=== PATIENT | male | born 1985 | race Two or more races ===

== ENCOUNTER 2024-11-28 18:18 | Inpatient (IN) | payer MEDICAID ==
[~2024-11-28] VITALS: Ht 185.4 cm; Wt 73.0 kg
[2024-11-28] VITALS (10 sets, daily range): BP systolic 106–132; BP diastolic 62–83; PULSE 77–112; RESP 12–22; TEMP 98.4–98.6; O2SAT 98–100
[2024-11-28] MEDS ORDERED: FAMO20TA8 PO (18:45)
[2024-11-28] MEDS ORDERED: ONDA-243 PO (18:45)
[2024-11-28 19:50] LABS: BASOPHILS % (AUTO) 0.3 % (0-1); EOSINOPHILS # (AUTO) 0.1 X10'3 (0-0.9); EOSINOPHILS % (AUTO) 0.4 % (0-6); HEMATOCRIT 45.4 % (42.0-52.0); HEMOGLOBIN 15.6 g/dl (14.0-17.9); LYMPHOCYTES # (AUTO) 0.8 X10'3 (1.1-4.8); LYMPHOCYTES % (AUTO) 4.9 % (21-51); MEAN CORPUSCULAR HEMOGLOBIN 30.9 PG (27.0-31.0); MEAN CORPUSCULAR HGB CONC 34.4 g/dL (33.0-36.5); MEAN CORPUSCULAR VOLUME 89.7 FL (78-98); MEAN PLATELET VOLUME 9.3 FL (7.4-10.4); MONOCYTES # (AUTO) 0.6 X10'3 (0-0.9); MONOCYTES % (AUTO) 3.7 % (2-12); NEUTROPHILS # (AUTO) 15.2 X10'3 (1.8-7.7); NEUTROPHILS % (AUTO) 90.7 % (42-75); PLATELET COUNT 230 X10'3 (140-440); RED BLOOD COUNT 5.06 X10'6 (4.70-6.10); RED CELL DISTRIBUTION WIDTH 13.2 % (11.5-14.5); WHITE BLOOD COUNT 16.7 X10'3 (4.5-11.0)
[2024-11-28 20:03] LABS: ALANINE AMINOTRANSFERASE 20 U/L (12-78); ALBUMIN 4.5 G/DL (3.4-5.0); ALBUMIN/GLOBULIN RATIO 1.3 (1.1-1.5); ALKALINE PHOSPHATASE 49 IU/L (46-116); ANION GAP 13 (8-16); ASPARTATE AMINO TRANSFERASE 12 U/L (10-37); BILIRUBIN,TOTAL 1.6 MG/DL (0.1-1.0); BLOOD UREA NITROGEN 12 MG/DL (7-18); BUN/CREATININE RATIO 14.1 (10.0-20.0); CALCIUM 9.2 MG/DL (8.5-10.1); CHLORIDE 106 MMOL/L (99-107); CREATININE 0.85 MG/DL (0.60-1.10); GLUCOSE 92 MG/DL (70-104); POTASSIUM 3.1 MMOL/L (3.5-5.1); SODIUM 143 MMOL/L (135-145); TOTAL CARBON DIOXIDE 24.5 MMOL/L (24-32); TOTAL PROTEIN 7.9 G/DL (6.4-8.2); eCRCL 120 ML/MIN; eGFR > 90 ML/MIN
[2024-11-28] MEDS ORDERED: potassium Cl 40MEQ/1/2NS 520ml 520 ML IV PRN (20:05)
[2024-11-28] MEDS ORDERED: magnesium sulf-water 2g/50mL 50 ML IV PRN (20:05)
[2024-11-28] MEDS ORDERED: acetaminophen 325mg tablet PO PRN (20:05)
[2024-11-28] MEDS ORDERED: magnesium sulf-water 4G/100mL 100 ML IV PRN (20:05)
[2024-11-28] MEDS ORDERED: magnesium Cl slow-release 64mg tablet PO PRN (20:05)
[2024-11-28] MEDS ORDERED: potassium Cl 20 mEq SR tablet PO PRN (20:05)
[2024-11-28] MEDS ORDERED: morphine 2 MG/ML inj. syringe IV PRN ×2 (20:05→20:30)
[2024-11-28] MEDS ORDERED: magnesium hydroxide 30ml (MOM) UD suspension PO PRN (20:05)
[2024-11-28] MEDS ORDERED: mag hydrox/Alum hydrox/simeth 30ml oral suspension PO PRN (20:05)
[2024-11-28] MEDS ORDERED: ondansetron/PF 4mg/2ml inj IV PRN ×2 (20:05→20:30)
[2024-11-28] MEDS ORDERED: LIDOcaine 1% 30ml preserv. free vial ONE (20:14)
[2024-11-28] MEDS ORDERED: BUPIVAcaine 2.5mg/ml inj 50ml vial (contains preservative) ONE (20:15)
[2024-11-28] MEDS: normal saline 1000ml 1,000 ML IV SCH (20:24)
[2024-11-28] MEDS: CefTRIAXone/D5W-Rocephin 1gm 50 ML IV SCH (20:24)
[2024-11-28] MEDS: ringers solution, lacted 1,000 ML IV SCH (20:30)
[2024-11-28] MEDS ORDERED: meperidine/PF 25mg/ml syringe IV PRN ×3 (20:30)
[2024-11-28] MEDS ORDERED: proCHLORperazine 10 MG/2 ml inj IV PRN (20:30)
[2024-11-28] MEDS ORDERED: sevoflurane 250ml liquid IH ONE (20:38)
[2024-11-28] MEDS ORDERED: rocuronium 10mg/ml inj IV ONE (20:39)
[2024-11-28] MEDS ORDERED: midazolam 1 mg/ML 2ml injection ONE (20:39)
[2024-11-28] MEDS ORDERED: fentaNYL/PF 50MCG/1 ML 2ML syringe ONE (20:39)
[2024-11-28] MEDS ORDERED: propofol inj 20 ML IV ONE (20:40)
[2024-11-28] MEDS: BUPIVAcaine/PF 2.5 mg/ml (0.25%) 30ml vial IJ ONE (21:16)
[2024-11-28] MEDS ORDERED: sugammadex 200mg/2ml injection IV ONE (21:29)
[2024-11-28] MEDS ORDERED: HYDROcodone/acetaminophen 5mg/325mg tablet PO PRN (21:45)
[2024-11-28] MEDS ORDERED: naloxone 0.4 mg/ml inj IV PRN (21:45)
[2024-11-28] MEDS ORDERED: HYDROmorphone/PF 0.2 MG/ML SYRINGE IV PRN (21:50)
[2024-11-28] MEDS: morphine 4 MG/ML inj SYRINge IV PRN (21:58)
[2024-11-28] MEDS: HYDROmorphone/PF 0.2 MG/ML SYRINGE IV PRN (22:09)
[2024-11-28] MEDS: metroNIDAZOLE-Flagyl 500mg/NS 100 ML IV SCH (22:37)
[2024-11-29 00:12] VITALS: BP 114/64; PULSE 75; RESP 15; TEMP 98.6; O2SAT 100
[2024-11-29] MEDS: potassium Cl 20 mEq SR tablet PO PRN (00:19)
[2024-11-29 01:12] VITALS: BP 116/62; PULSE 69; RESP 16; TEMP 98.4; O2SAT 98
[2024-11-29 02:12] VITALS: BP 111/64; PULSE 66; RESP 16; TEMP 98.6; O2SAT 100
[2024-11-29] MEDS: morphine 2 MG/ML inj. syringe IV PRN (03:46)
[2024-11-29 04:37] LABS: URINE AMPHETAMINE SCREEN NEGATIVE (Neg); URINE BARBITUATE SCREEN NEGATIVE (Neg); URINE BENZODIAZEPINES SCREEN POSITIVE (Neg); URINE CANNABINOID SCREEN POSITIVE (Neg); URINE COCAINE SCREEN NEGATIVE (Neg); URINE METHADONE SCREEN NEGATIVE (Neg); URINE OPIATE SCREEN POSITIVE (Neg); URINE PHENCYCLIDINE SCREEN NEGATIVE (Neg)
[2024-11-29 05:33] LABS: BASOPHILS % (AUTO) 0.2 % (0-1); EOSINOPHILS % (AUTO) 0.1 % (0-6); HEMATOCRIT 44.5 % (42.0-52.0); LYMPHOCYTES % (AUTO) 7.4 % (21-51); MEAN CORPUSCULAR HEMOGLOBIN 30.9 PG (27.0-31.0); MEAN CORPUSCULAR HGB CONC 33.8 g/dL (33.0-36.5); MEAN CORPUSCULAR VOLUME 91.5 FL (78-98); MEAN PLATELET VOLUME 9.8 FL (7.4-10.4); MONOCYTES % (AUTO) 7.3 % (2-12); NEUTROPHILS # (AUTO) 11.2 X10'3 (1.8-7.7); PLATELET COUNT 208 X10'3 (140-440); RED BLOOD COUNT 4.86 X10'6 (4.70-6.10); RED CELL DISTRIBUTION WIDTH 13.5 % (11.5-14.5); WHITE BLOOD COUNT 13.2 X10'3 (4.5-11.0)
[2024-11-29 05:47] LABS: HEMOGLOBIN A1C 5.1 % (4.5-6.2)
[2024-11-29 06:00] VITALS: BP 107/64; PULSE 68; RESP 16; TEMP 98.3; O2SAT 100
[2024-11-29 06:07] LABS: ALANINE AMINOTRANSFERASE 17 U/L (12-78); ALBUMIN 3.9 G/DL (3.4-5.0); ALBUMIN/GLOBULIN RATIO 1.2 (1.1-1.5); ALKALINE PHOSPHATASE 41 IU/L (46-116); ANION GAP 10 (8-16); ASPARTATE AMINO TRANSFERASE 12 U/L (10-37); BLOOD UREA NITROGEN 9 MG/DL (7-18); BUN/CREATININE RATIO 10.7 (10.0-20.0); CALCIUM 8.4 MG/DL (8.5-10.1); CHLORIDE 108 MMOL/L (99-107); CHOLESTEROL 159 MG/DL (0-200); CREATININE 0.84 MG/DL (0.60-1.10); GLUCOSE 95 MG/DL (70-104); HDL CHOLESTEROL 53 MG/DL (35-60); LDL CHOLESTEROL 96 MG/DL (50-100); POTASSIUM 3.5 MMOL/L (3.5-5.1); SODIUM 143 MMOL/L (135-145); TOTAL CARBON DIOXIDE 25.4 MMOL/L (24-32); TOTAL PROTEIN 7.1 G/DL (6.4-8.2); TRIGLYCERIDES 67 MG/DL (20-135); eCRCL 122 ML/MIN; eGFR > 90 ML/MIN
[2024-11-29] MEDS: HYDROcodone/acetaminophen 10/325mg tab PO PRN (07:03)
[2024-11-29] MEDS: K and/or MAG REPLACEMENT MC SCH (08:00)
[2024-11-29] MEDS: docusate sod 100mg capsule PO SCH (08:21)
[2024-11-29] MEDS: heparin, porcine 5000 units/ml vial SQ SCH (08:21)
[2024-11-29 10:18] VITALS: BP 112/68; PULSE 75; RESP 16; TEMP 98.2; O2SAT 97
[2024-11-29] MEDS: ketorolac trometh 15mg/ml vial 15 MG/ML ML IV ONE (18:16)
[2024-11-30 05:44] LABS: BASOPHILS % (AUTO) 0.4 % (0-1); EOSINOPHILS # (AUTO) 0.2 X10'3 (0-0.9); EOSINOPHILS % (AUTO) 2.5 % (0-6); HEMATOCRIT 43.6 % (42.0-52.0); HEMOGLOBIN 14.9 g/dl (14.0-17.9); LYMPHOCYTES # (AUTO) 1.5 X10'3 (1.1-4.8); LYMPHOCYTES % (AUTO) 18.8 % (21-51); MEAN CORPUSCULAR HEMOGLOBIN 31.2 PG (27.0-31.0); MEAN CORPUSCULAR HGB CONC 34.3 g/dL (33.0-36.5); MEAN PLATELET VOLUME 9.5 FL (7.4-10.4); MONOCYTES # (AUTO) 0.7 X10'3 (0-0.9); MONOCYTES % (AUTO) 8.9 % (2-12); NEUTROPHILS # (AUTO) 5.4 X10'3 (1.8-7.7); NEUTROPHILS % (AUTO) 69.4 % (42-75); PLATELET COUNT 200 X10'3 (140-440); RED BLOOD COUNT 4.79 X10'6 (4.70-6.10); RED CELL DISTRIBUTION WIDTH 13.3 % (11.5-14.5); WHITE BLOOD COUNT 7.7 X10'3 (4.5-11.0)
[2024-11-30 05:56] LABS: ALANINE AMINOTRANSFERASE 17 U/L (12-78); ALBUMIN 3.8 G/DL (3.4-5.0); ALBUMIN/GLOBULIN RATIO 1.1 (1.1-1.5); ALKALINE PHOSPHATASE 40 IU/L (46-116); ANION GAP 8 (8-16); ASPARTATE AMINO TRANSFERASE 7 U/L (10-37); BILIRUBIN,TOTAL 0.9 MG/DL (0.1-1.0); BLOOD UREA NITROGEN 6 MG/DL (7-18); BUN/CREATININE RATIO 6.6 (10.0-20.0); CALCIUM 8.7 MG/DL (8.5-10.1); CHLORIDE 104 MMOL/L (99-107); CREATININE 0.91 MG/DL (0.60-1.10); GLUCOSE 91 MG/DL (70-104); MAGNESIUM 2.1 MG/DL (1.5-2.4); POTASSIUM 3.7 MMOL/L (3.5-5.1); SODIUM 140 MMOL/L (135-145); TOTAL CARBON DIOXIDE 27.8 MMOL/L (24-32); TOTAL PROTEIN 7.3 G/DL (6.4-8.2); eCRCL 113 ML/MIN; eGFR > 90 ML/MIN
[2024-11-30 06:00] VITALS: BP 112/73; PULSE 53; RESP 14; TEMP 98.1; O2SAT 100
[2024-11-30 08:00] VITALS: RESP 14; O2SAT 100
[2024-11-30 10:00] VITALS: BP 122/62; PULSE 74; RESP 18; TEMP 98.2; O2SAT 99
[2024-11-30] MEDS ORDERED: HYDR-3965 PO (11:45)
[2024-11-30 12:15] VITALS: RESP 16
[2024-11-30] MEDS: oxyCODONE/APAP 5-325mg tablet PO PRN (12:15)
== END 2024-11-30 12:32 | disposition home or self-care (01) | DRG 234 ==
LOC: ER 18:19 → ED HOLD 19:25 → SUR 3N 22:20
PROVIDERS: ADMIT Surgery; ATTEND Internal Medicine
PROC: 8E0W4CZ Robotic Assisted Procedure of Trunk Region, Percutaneous Endoscopic Approach (ICD-10-PCS; 2024-11-28)
PROC: 0DTJ4ZZ Resection of Appendix, Percutaneous Endoscopic Approach (ICD-10-PCS; principal; 2024-11-28 20:38)
DX: K35.80 Unspecified acute appendicitis (principal); F12.90 Cannabis use, unspecified, uncomplicated; F17.210 Nicotine dependence, cigarettes, uncomplicated; K21.9 Gastro-esophageal reflux disease without esophagitis; Z79.899 Other long term (current) drug therapy
CPT/HCPCS: 36415; 71045; 80053; 80061; 80305; 83036; 83605; 83735; 84145; 85025; 87081; 96374; 96375; 99285; A4215; A4618; G0378; J0696; J1171; J1644; J1885; J2003; J2250; J2270; J2704; J3010; J3490; J7030